=== PATIENT | female | born 1995 | race American Indian/Alaskan Native ===

== ENCOUNTER 2016-12-24 16:33 | Emergency (ER) | payer OTHER ==
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
[2016-12-24 20:59] VITALS: BP 123/86
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
[2016-12-24] MEDS ORDERED: MOTRIN PO ONE (21:40)
== END 2016-12-24 21:55 | disposition home or self-care (01) ==
LOC: ED 16:33
DX: S06.0X1A Concussion with loss of consciousness of 30 minutes or less, initial encounter (principal); S00.33XA Contusion of nose, initial encounter; S20.219A Contusion of unspecified front wall of thorax, initial encounter; V89.2XXA Person injured in unspecified motor-vehicle accident, traffic, initial encounter; W22.11XA Striking against or struck by driver side automobile airbag, initial encounter; Y93.89 Activity, other specified; Y99.9 Unspecified external cause status; Y92.410 Unspecified street and highway as the place of occurrence of the external cause
CPT/HCPCS: 70450; 70486; 71020; 72125; 81025